=== PATIENT | female | born 1990 | race Two or more races ===

== ENCOUNTER 2021-02-07 10:48 | Day surgery (SDC) | payer MEDICAID, OTHER ==
[2021-02-07] MEDS ORDERED: Bupivacaine 0.5% 50 ML MDV ONE (10:55)
[2021-02-07] MEDS ORDERED: Midazolam 1 MG/ML 2 ML SDV ONE (11:14)
[2021-02-07] MEDS ORDERED: fentaNYL 100 MCG/2 ML SDV ONE (11:14)
[2021-02-07] MEDS ORDERED: Propofol 200 MG/20 ML SDV ONE (11:14)
[2021-02-07] MEDS ORDERED: Lactated Ringers 1,000 ML IV SCH (11:15)
[2021-02-07] MEDS ORDERED: ceFAZolin 2 GM in Premix Bag 1 BAG IV ONE (12:00)
[2021-02-07 14:01] VITALS: BP 117/75; PULSE 78
--- NOTE | 2021-02-07 21:01 | OR ---
DATE OF PROCEDURE: 02/07/2021 SURGEON: Narayan Oliveira DPM [place] SPONGE BOAT: None. PREOPERATIVE DIAGNOSIS: Ganglion cyst, right foot. POSTOPERATIVE DIAGNOSIS: Ganglion cyst, right foot. PROCEDURE: Excision of ganglion cyst, right foot. ANESTHESIA: Local with IV sedation. HEMOSTASIS: Obtained with an ankle tourniquet on the right ankle at 250 mmHg. ESTIMATED BLOOD LOSS: 5 mL. MATERIALS: None. INJECTABLES: A total of 16 mL of Marcaine 0.5% plain was injected in the foot. PATHOLOGY: Ganglion cyst was sent. CONDITION: Stable. INDICATIONS FOR SURGERY: Painful ganglion cyst, right foot, that was unresponsive to conservative measures. PROCEDURE IN DETAIL: The patient was brought to the operating room, placed on the operating table in supine position. Following IV sedation, anesthesia was obtained with a total of 16 mL of Marcaine 0.5% plain on the right foot. The right foot was then scrubbed, prepped, and draped in the usual aseptic manner and raised to 60 degrees for hemostasis and exsanguinated using Esmarch bandage. Tourniquet was inflated. Foot was lowered to the table. A skin incision was made on the medial aspect of the right foot longitudinally approximately a 3 cm incision. Incisions were deepened through subcutaneous tissues with care taken to identify and retract all vital neurovascular structures. The ganglion cyst was located and removed with blunt and sharp dissection with the Metzenbaum scissors. The cyst was removed and then we palpated in the area to make sure that there was no further cyst formation, and since none could be found, the incision was flushed out with copious amounts of sterile saline. The pedicle where the cyst was removed from was cauterized with electrocautery, and then deep closure was obtained with 3-0 Vicryl and subcutaneous closure with 3-0 Vicryl and skin closure with 3-0 nylon in a horizontal mattress configuration. Foot was dressed with Xeroform, 4x4s, Kerlix, and Coban. The patient was returned to the recovery room with vital signs stable and vascular status intact to both feet. The patient was given instructions to keep dressings clean, dry, and intact. Maintain nonweightbearing on the right foot. Rest, ice, and elevate the right foot. Ambulate with crutches, and return to clinic with Dr. Oliveira in 1 week, at which time she will be re-evaluated, but to call prior to that if she has any other questions or concerns and to go to the emergency room if she has any nausea, vomiting, fever, chills, chest pain, calf pain, or difficulty breathing. Narayan Oliveira DPM /[id number]
== END 2021-02-07 14:45 | disposition home or self-care (01) ==
LOC: JP.SDS 10:48
PROVIDERS: ATTEND Podiatrist Foot & Ankle Surgery
DX: M67.471 Ganglion, right ankle and foot (principal); N76.0 Acute vaginitis; F17.200 Nicotine dependence, unspecified, uncomplicated; Z98.890 Other specified postprocedural states; Z79.899 Other long term (current) drug therapy; Z91.048 Other nonmedicinal substance allergy status
CPT/HCPCS: 28090; 81025; J0690; J2250; J2704; J3010; J3490; J7120

== ENCOUNTER 2021-08-18 18:27 | Emergency (ER) | payer OTHER, MEDICAID ==
[2021-08-18] MEDS ORDERED: Sodium Chloride 0.9% 1,000 ML IV SCH (19:30)
[2021-08-18 20:21] LABS: CORONAVIRUS COVID-19 NAA NEGATIVE (NEGATIVE)
[2021-08-18 20:22] VITALS: BP 109/72; PULSE 72
== END 2021-08-18 21:26 | disposition home or self-care (01) ==
LOC: JP.ED 18:27
DX: K52.9 Noninfective gastroenteritis and colitis, unspecified (principal); Z20.822 Contact with and (suspected) exposure to COVID-19; Z88.8 Allergy status to other drugs, medicaments and biological substances; Z79.899 Other long term (current) drug therapy
CPT/HCPCS: 0241U; 36415; 80053; 83605; 85025; 99284; J7030; 99283

== ENCOUNTER 2022-03-11 21:13 | Emergency (ER) | payer OTHER, MEDICAID ==
[2022-03-11 21:24] VITALS: BP 125/91; PULSE 78
== END 2022-03-11 22:17 | disposition home or self-care (01) ==
LOC: JP.ED 21:13
DX: N39.0 Urinary tract infection, site not specified (principal); J32.9 Chronic sinusitis, unspecified; Z91.018 Allergy to other foods; Z79.899 Other long term (current) drug therapy; Z87.891 Personal history of nicotine dependence
CPT/HCPCS: 81001; 87086; 99283